=== PATIENT | male | born 1995 | race Caucasian/White ===

== ENCOUNTER 2016-09-05 22:55 | Emergency (ER) | payer SELFPAY ==
[~2016-09-05] VITALS: Ht 170.2 cm; Wt 75.3 kg
[2016-09-05 22:56] VITALS: BP 131/75
--- NOTE | 2016-09-05 23:12 | Emergency Room Report ---
History of Present Illness General Chief Complaint: Medical Clearance Source: Patient, EMS Present Illness HPI This is a 21-year-old male with no past medical history. He presents with chief complaint of medical clearance. He was brought in by EMS and police. He was causing a disturbance and ended up being tazed. He has a pacer in mid chest and left groin area. No other injury. No loss of consciousness. No pain. He has no other complaint. Allergies: Coded Allergies: No Known Allergies (Unverified , 09/05/16) Patient History Past Medical History: see triage record, old chart reviewed Past Surgical History: none Pertinent Family History: none Immunizations: other Reviewed Nursing Documentation: PMH: Agreed, PSxH: Agreed Nursing Documentation-PMH Past Medical History: No Stated History Review of Systems Eye: Denies: blurred vision, eye pain ENT: Denies: ear pain, nose congestion, throat swelling Respiratory: Denies: cough, shortness of breath Cardiovascular: Denies: chest pain, palpitations Gastrointestinal: Denies: abdominal pain, diarrhea, nausea, vomiting Musculoskeletal: Denies: back pain, joint pain Skin: Denies: rash Neurological: Denies: headache, numbness Endocrine: Denies: increased thirst, increased urine Hematologic/Lymphatic: Denies: easy bruising All Other Systems: negative except mentioned in HPI Physical Exam Vital Signs Date Time Temp Pulse Resp B/P Pulse Ox O2 Delivery O2 Flow Rate FiO2 09/05/16 22:50 98.1 71 16 131/75 100 Room Air vitals normal Sp02 EP Interpretation: reviewed, normal General Appearance: well appearing, no apparent distress, alert Head: normocephalic, atraumatic Eyes: bilateral eye EOMI, bilateral eye PERRL ENT: hearing grossly normal, normal pharynx Neck: full range of motion, supple, no meningismus Respiratory: chest non-tender, lungs clear, normal breath sounds, other - He has a foreign body in the form of a taser in his mid chest Cardiovascular #1: regular rate, rhythm, no murmur Gastrointestinal: normal bowel sounds, non tender, no mass, no organomegaly, no bruit, non-distended Genitourinary: other - taser in left groin area. Musculoskeletal: back normal, gait/station normal, normal range of motion Psychiatric: mood/affect normal Skin: warm/dry Procedures Additional Procedure Procedure Narrative Procedure: Foreign body removal Indication: Foreign body. Description: Inject a small amount of lidocaine without epinephrine to the foreign body in the mid chest area. Using an 11 blade scalpel, I made a small incision. I pulled out the taser without difficulty. The taser in his left groin was through his pants. It was barely into the skin. I pulled this out without difficulty. Did not require lidocaine. Patient tolerated procedure without a problem. Medical Decision Making Diagnostic Impression: Primary Impression: Foreign body (FB) in soft tissue ER Course Patient with foreign body in soft tissue. No deep injection. He is stable. We 'll discharge home. Last Vital Signs Date Time Temp Pulse Resp B/P Pulse Ox O2 Delivery O2 Flow Rate FiO2 09/05/16 22:56 98.1 71 16 131/75 100 Room Air Status: improved Disposition: D/C TO LAW ENFORCEMENT IN [facility] Condition: Stable Additional Instructions: Followup with your DrKristi in 7 days. Return as needed. SIVA HENSLEY M.D. Sep 05, 2016 23:12
[2016-09-05 23:20] VITALS: BP 131/75
== END 2016-09-05 23:40 ==
LOC: EDBD 22:55 → EMR 23:35
DX: Z02.89 Encounter for other administrative examinations (principal); S20.359A Superficial foreign body of unspecified front wall of thorax, initial encounter; S30.851A Superficial foreign body of abdominal wall, initial encounter; Y35.893A Legal intervention involving other specified means, suspect injured, initial encounter; Y92.9 Unspecified place or not applicable; Y99.8 Other external cause status
CPT/HCPCS: 10120